=== PATIENT | female | born 1965 | race Caucasian/White ===

== ENCOUNTER 2016-12-04 16:23 | Day surgery (SDC) | payer OTHER ==
[2016-12-03 19:04] VITALS: BMI 26.5
[~2016-12-04] VITALS: Ht 162.6 cm; Wt 71.5 kg
[2016-12-04] VITALS (16 sets, daily range): BP systolic 124–164; BP diastolic 78–98; PULSE 58–74; RESP 14–21; Ht 162.6 cm; Wt 71.5 kg
[~2016-12-04 16:23] MED LIST: ASPI81TA3 PO; ATROVASTIN; CARV12.598 PO; DIPHENHYDRAMINE 50 MG INJ IV PRN; EPHEDrine SULFATE 50 MG/5 ML SYG IV PRN; FENTAnyl 50 MCG/ML VIAL IV PRN; HYD25 PO; HYDROmorphONE (0.2 MG/ML) 10ML SYG IV PRN; KETOROLAC 30 MG INJ IV ONE; LABETALOL HCL 20MG INJ IV PRN; LOSA100T7 PO; MEPERIDINE 25 MG INJ IV PRN; METOCLOPRAMIDE 10 MG INJ IV PRN; ONDANSETRON 4 MG INJ IV PRN; OXYCODONE/ACETAMINOPHEN (5/325) TAB PO PRN; PROCHLORPERAZINE 10 MG INJ IV PRN; hydrALAzine 20 MG INJ IV PRN
[2016-12-04] MEDS ORDERED: OMEP20CA16 PO (18:04)
[2016-12-04] MEDS ORDERED: AMLO-147 PO (18:04)
[2016-12-04] MEDS ORDERED: ATOR10TA65 PO (18:04)
[2016-12-04] MEDS ORDERED: LIDOCAINE 1% (STERILE-PAK) 30 ML INJ ONE (18:44)
[2016-12-04] MEDS ORDERED: BUPIVACAINE 0.25% (MPF) 30 ML INJ ONE (18:44)
--- NOTE | 2016-12-04 18:48 | HPN ---
Date/Time of Note Date/Time of Note DATE: 12/04/16 TIME: 18:48 Interval H&P Admission Note Pt. seen H&P reviewed: No system changes CHRISTOS VELASCO Dec 04, 2016 18:48
[2016-12-04] MEDS ORDERED: FENTAnyl 50 MCG/ML VIAL ONE (18:51)
[2016-12-04] MEDS ORDERED: HYDROmorphONE (0.2 MG/ML) 10ML SYG IV PRN ×3 (19:30)
[2016-12-04] MEDS ORDERED: DIPHENHYDRAMINE 50 MG INJ IV PRN (19:30)
[2016-12-04] MEDS ORDERED: MEPERIDINE 25 MG INJ IV PRN (19:30)
[2016-12-04] MEDS ORDERED: FENTAnyl 50 MCG/ML VIAL IV PRN (19:30)
[2016-12-04] MEDS ORDERED: HYDROCODONE/APAP (5/325) TAB PO PRN (21:00)
--- NOTE | 2016-12-05 00:37 | OPR ---
DATE OF OPERATION: 12/04/2016 SURGEON: Christos Mcclain MD ANESTHESIA: Local MAC. PREOPERATIVE DIAGNOSES: 1. Right thumb crush injury with likely nail bed injury. 2. Right thumb distal phalanx open fracture. POSTOPERATIVE DIAGNOSES: 1. Right thumb crush injury. 2. Right thumb subungual hematoma. Right thumb nail bed injury. 3. Right thumb distal phalanx fracture. PROCEDURE: 1. Removal of right thumb nail plate and evacuation of subungual hematoma. 2. Primary repair of right thumb nail bed injury. OPERATIVE FINDINGS: Consolidated hematoma under the right thumb nail plate with underlying nail bed injury. INDICATION FOR PROCEDURE: A 51-year-old female with right thumb crush injury who presented to clinic. It took her several weeks to get into surgery and her surgery was almost 5 weeks after the injury. I did discuss with her that the results with surgery are likely to be less successful given the chronicity of the injury, but patient was quite uncomfortable and did not like the deformity. We also discussed the possibility of nail bed injury underlying that and the possibility that it had started to heal at this point in time, but the patient wanted to proceed with surgery understanding the risks and benefits. DESCRIPTION OF PROCEDURE: The patient was seen in the preoperative area and all further questions were answered. Again, she gave informed consent understanding risks and benefits. She was taken to operative suite and placed in supine position. Sedation was administered and clindamycin 900 mg given. Right upper extremity was prepped with ChloraPrep stick and draped in usual sterile fashion. A Adeline drain was used as a finger tourniquet and a [place]abar elevator was used to elevate the nail plate. The nail plate was removed and there was significant consolidated hematoma overlying a nail bed injury. The hematoma was excised and debrided and washed out and the nail bed injury was visualized. I performed an excisional debridement of the early scar tissue and the devitalized nail bed with deformity. The wound was irrigated and the nail bed was primarily repaired with 6-0 Monocryl suture. The nail plate which had been soaking in iodine was debrided and was placed back over the nail bed under the proximal nail fold. Monocryl 6-0 was used to secure the nail plate. Xeroform was placed over the wound followed by sterile gauze and a 1-inch Coban wrapped loosely. Tourniquet deflated after 20 minutes and patient was awakened from anesthesia. She was taken to the postoperative suite in stable condition and tolerated procedure well without complication. SPECIMENS: None. ESTIMATED BLOOD LOSS: 5 mL. COUNTS: Sponge, instrument, needle counts correct. TOURNIQUET TIME: 20 minutes. CONDITION ON DISCHARGE: Stable. Dictated By: CHRISTOS LORENZO/MARCO Conf#: [id number] DID#: [id number] ANTHONY
== END 2016-12-04 20:37 | disposition home or self-care (01) ==
LOC: SDS 16:23
PROVIDERS: ATTEND Orthopaedic Surgery Hand Surgery
DX: Z45.89 Encounter for adjustment and management of other implanted devices (principal); S62.501D Fracture of unspecified phalanx of right thumb, subsequent encounter for fracture with routine healing; X58.XXXD Exposure to other specified factors, subsequent encounter; I10 Essential (primary) hypertension
CPT/HCPCS: 26320; J0360; J1885; J2405; J3010; Z7512; Z7610